=== PATIENT | male | born 1985 | race Caucasian/White ===

== ENCOUNTER 2017-09-09 14:33 | Emergency (ER) | payer MEDICAID ==
[~2017-09-09] VITALS: Ht 180.3 cm; Wt 117.2 kg
[2017-09-09 16:00] VITALS: BP 135/81
== END 2017-09-09 17:18 | disposition home or self-care (01) ==
LOC: EMS 14:34
DX: J02.9 Acute pharyngitis, unspecified (principal)
CPT/HCPCS: 87430; 99283